=== PATIENT | male | born 1980 | race Caucasian/White ===

== ENCOUNTER 2020-03-17 14:56 | Emergency (ER) | payer BC ==
[~2020-03-17] VITALS: Ht 172.7 cm; Wt 108.9 kg
[2020-03-17 15:12] VITALS: Ht 172.7 cm; Wt 108.9 kg
[2020-03-17 16:53] LABS: BASOPHIL % 0.5 % (0-2)
[2020-03-17 16:59] LABS: PLATELET COUNT 204 x10^3mcL (130-400); RED CELL DISTRIBUTION WIDTH 13.5 % (11.5-14.5)
[2020-03-17 17:16] LABS: CHLORIDE SERUM 103 mmol/L (98-107); CREATININE SERUM 1.1 mg/dL (0.7-1.3); GFR1 > 60 mL/min; GLUCOSE SERUM 99 mg/dL (74-106); POTASSIUM SERUM 4.3 mmol/L (3.5-5.1); SODIUM SERUM 141 mmol/L (136-145)
[2020-03-17 17:20] LABS: ALBUMIN 4.1 g/dL (3.4-5.0); ALKALINE PHOSPHATASE 64 U/L (46-116); ALT/SGPT 55 U/L (16-63); AST/SGOT 20 U/L (15-37); LIPASE 115 IU/L (73-393); TOTAL PROTEIN, SERUM 7.7 g/dL (6.4-8.2)
[2020-03-17 17:44] LABS: UA SPECIFIC GRAVITY 1.025 (1.005-1.035); microscopic required? YES; urine erythrocyte TRACE (NEGATIVE)
[2020-03-17 18:46] VITALS: BP 142/82
== END 2020-03-17 18:45 | disposition home or self-care (01) ==
LOC: ED 14:56
PROVIDERS: Emergency Medicine
DX: N23 Unspecified renal colic (principal)